=== PATIENT | male | born 1975 | race American Indian/Alaskan Native ===

== ENCOUNTER 2017-02-06 20:25 | Emergency (ER) | payer OTHER, MEDICAID ==
[2017-02-06 20:40] VITALS: BP 138/102
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
--- NOTE | 2017-02-07 07:26 | XRay Report ---
Bilateral femur: History: Bilateral thigh pain. Findings: No fracture, periosteal reaction or lytic lesion. No soft tissue calcification. Impression: Essentially negative right and left femur.
--- NOTE | 2017-02-07 07:27 | XRay Report ---
Left shoulder 3 views: History: Shoulder pain. Findings: No bony or articular abnormality. No fracture dislocation or soft tissue calcification. Impression: Essentially negative left shoulder.
--- NOTE | 2017-02-07 07:28 | XRay Report ---
Cervical spine 3 views: History: Back pain and neck pain. Findings: Loss of cervical lordosis. Normal height of vertebral bodies. Decrease in height of the C5-C6 with evidence of mild cervical spondylosis. No fracture. Normal prevertebral soft tissue. Impression: Spondylosis C5-C6.
--- NOTE | 2017-02-07 07:29 | XRay Report ---
3 views sacrum and coccyx: History: Coccyx pain. Findings: No fracture. No soft tissue calcification. Next Impression: Essentially negative sacrum and coccyx.
== END 2017-02-06 23:57 | disposition left against medical advice (07) ==
LOC: ED 20:25
DX: M54.5 Low back pain (principal); M79.605 Pain in left leg; M79.604 Pain in right leg; M25.512 Pain in left shoulder; V23.4XXA Motorcycle driver injured in collision with car, pick-up truck or van in traffic accident, initial encounter; Y93.89 Activity, other specified; Y99.8 Other external cause status; Y92.410 Unspecified street and highway as the place of occurrence of the external cause; Z53.21 Procedure and treatment not carried out due to patient leaving prior to being seen by health care provider
CPT/HCPCS: 70450; 72040; 72220